=== PATIENT | male | born 1965 | race Two or more races ===

== ENCOUNTER 2024-08-04 06:00 | Day surgery (SDC) | payer OTHER ==
[2024-07-28 11:36] VITALS: BP 108/72
[~2024-08-04] VITALS: Ht 172.7 cm; Wt 49.9 kg
[~2024-08-04 06:00] MED LIST: ACID CONTROLLER20 MG PO; CLONAZEPAM0.5 M1 PO; FOSAMAX70 MG PO; PLAVIX75 MG PO; SENSIPAR60 MG PO; SERTRALINE20 MG/1 ML; TRAZODONE HCL150 MG
[2024-08-04] MEDS ORDERED: DEXAMETHASONE SODIUM PHOSPHATE 4 MG/ML VIAL ONE (12:47)
[2024-08-04] MEDS ORDERED: MORPHINE SULFATE 4 MG/ML VIAL IV ONE (15:10)
== END 2024-08-04 17:05 | disposition home or self-care (01) ==
LOC: CIR.AMB 06:00
PROVIDERS: ATTEND Surgery
DX: D35.1 Benign neoplasm of parathyroid gland (principal); E21.0 Primary hyperparathyroidism